=== PATIENT | female | born 1980 | race Caucasian/White ===

== ENCOUNTER 2023-07-28 20:12 | Emergency (ER) | payer MEDICARE, MEDICAID ==
[~2023-07-28] VITALS: Ht 162.6 cm; Wt 53.6 kg
[~2023-07-28 20:12] MED LIST: DIVA-112 PO; DIVA500T69 PO; DOXY-354 PO; DULO20CA71 PO; GABA-1181 PO; GABA-1201 PO; LURA40TA2 PO; MELA5TAB40 PO; MUPI1OIN5 TP
[2023-07-28] MEDS ORDERED: BUPRENORPHINE HCL/NALOXONE HCL 8-2 MG SUBLINGUAL TABLET SL ONE (22:30)
[2023-07-28] MEDS ORDERED: LORazepam 1 MG TABLET PO ONE (22:30)
[2023-07-29 00:45] VITALS: BP 119/68; PULSE 71; RESP 16; TEMP 98.3
== END 2023-07-29 00:50 | disposition home or self-care (01) ==
LOC: EMS 20:13
DX: Z51.81 Encounter for therapeutic drug level monitoring (principal); F10.20 Alcohol dependence, uncomplicated; Z76.0 Encounter for issue of repeat prescription; Z91.013 Allergy to seafood; Z88.8 Allergy status to other drugs, medicaments and biological substances
CPT/HCPCS: 99283